=== PATIENT | female | born 1935 | race Two or more races ===

== ENCOUNTER 2019-11-18 16:18 | Inpatient (IN) | payer MEDICARE, OTHER ==
[~2019-11-18] VITALS: Ht 162.6 cm; Wt 80.4 kg
--- NOTE | 2019-11-18 16:40 | NUR ---
PATIENT WAS MSE BY DR BARNARD IN ROOM 03A. PATIENT A & O X3.
[2019-11-18] MEDS ORDERED: IV NORMAL SALINE 1000 ML BAG IV ONE ×2 (16:45→18:00)
[2019-11-18] MEDS ORDERED: LEVO25TA9 PO (16:48)
[2019-11-18] MEDS ORDERED: AMLO2.5T4 PO (16:48)
[2019-11-18] MEDS ORDERED: DIVA-78 PO (16:48)
[2019-11-18] MEDS ORDERED: CHOL10002 PO (16:48)
[2019-11-18] MEDS ORDERED: [UNRECOGNIZED DRUG - CODE] PO (16:48)
[2019-11-18] MEDS ORDERED: SIMV-49 PO (16:48)
[2019-11-18] MEDS ORDERED: PANT40TA4 PO (16:48)
[2019-11-18] MEDS ORDERED: FENO145T PO (16:48)
[2019-11-18] MEDS ORDERED: RISP1TAB27 PO (16:48)
[2019-11-18] MEDS ORDERED: FLUT12AE5 IH (16:48)
[2019-11-18] MEDS ORDERED: ACETAMINOPHEN ES 500 MG TABLET ONE (17:14)
[2019-11-18] MEDS ORDERED: ACETAMINOPHEN 325 MG TABLET PO ONE (17:15)
[2019-11-18 17:22] LABS: *BILIRUBIN,URIN NEGATIVE (NEGATIVE); *CLARITY,URINE CLEAR (CLEAR); *COLOR,URINE YELLOW (YELLOW); *KETONES,URINE NEGATIVE (NEGATIVE); LEUKOCYTE ESTERASE ,URINE 1+ (NEGATIVE); NITRITE, URINE NEGATIVE (NEGATIVE); PH,URINE 5.5 (5.0-8.0); UGLUCOSE NEGATIVE (NEGATIVE)
[2019-11-18 17:22] LABS: BASOPHILS # (AUTO) 0.1 K/uL (0.0-8.0); BASOPHILS % (AUTO) 1.6 % (0.0-2.0); EOSINOPHILS % (AUTO) 0.1 % (0.0-7.0); HEMATOCRIT 31.3 % (31.2-41.9); HEMOGLOBIN 10.3 g/dL (10.9-14.3); LYMPHOCYTES # (AUTO) 1.1 K/uL (20.0-40.0); LYMPHOCYTES % (AUTO) 24.9 % (20.5-51.5); MEAN CORPUSCULAR HEMOGLOBIN 31.4 uug (24.7-32.8); MEAN CORPUSCULAR HGB CONC 33 g/dL (32.3-35.6); MEAN CORPUSCULAR VOLUME 95.9 fL (75.5-95.3); MONOCYTES # (AUTO) 0.8 K/uL (2.0-10.0); MONOCYTES % (AUTO) 18.5 % (0.0-11.0); NEUTROPHILS # (AUTO) 2.3 K/uL (1.8-8.9); NEUTROPHILS % (AUTO) 54.9 % (38.5-71.5); PLATELET COUNT (AUTO) 281 K/uL (179-408); RED BLOOD CELL COUNT(AUTO) 3.26 MIL/uL (3.63-4.92); WHITE BLOOD COUNT (AUTO) 4.3 K/uL (3.8-11.8)
[2019-11-18 17:38] LABS: BILIRUBIN,DIRECT 0.3 mg/dL (0.0-0.2); BILIRUBIN,TOTAL 1.2 mg/dL (0.2-1.0); POTASSIUM 4.7 mmol/L (3.5-5.1); TOTAL PROTEIN, SERUM 7.4 g/dL (6.4-8.2)
[2019-11-18 17:50] LABS: *BLOOD, URINE TRACE (NEGATIVE)
[2019-11-18 17:51] LABS: MUCUS,URINE FEW /LPF (0-FEW); RBC,URINE 0-3 /HPF (0-3); SQUAMOUS EPITHELIAL CELL,UR FEW /HPF (NONE SEEN)
[2019-11-18 17:59] LABS: BAND % (MANUAL) 5 % (0-10); LYMPHOCYTES % (MANUAL) 20 % (20-40); MONOCYTES % (MANUAL) 16 % (2-10); NEUTROPHILS % (MANUAL) 59 % (42-75)
[2019-11-18] MEDS ORDERED: VANCOMYCIN IV 1,000 MG in IV DEXTROSE 5% 250 ML IV ONE (18:00)
[2019-11-18] MEDS ORDERED: PIPERACILLIN SODIUM/TAZOBACTAM 3.375 G in IV DEXTROSE 5% 50 ML IV ONE (18:00)
[2019-11-18] MEDS ORDERED: PIPERACILLIN/TAZOBACTAM/D5W 50 ML IV ONE (18:01)
[2019-11-18 18:06] LABS: THYROID STIMULATING HORMONE 2.669 mIU/mL (0.358-3.740)
--- NOTE | 2019-11-18 18:07 | NUR ---
[facility] WAS CALLED DR PINON [employer]GUN [employer] ASSEMBLY MACHINE ADJUSTER WAITING FOR CALL BACK.
[2019-11-18] MEDS ORDERED: VANCOMYCIN IV 200 ML ONE (18:32)
--- NOTE | 2019-11-18 18:54 | NUR ---
PATIENT EATING DINNER. NO C/O ANY PAIN. NO SOB. IV ATB INFUSING WELL NO ADVERSE REACTION NOTED WILL CONTINUE TO MONITOR.
--- NOTE | 2019-11-18 19:55 | NUR ---
Pt. admitted to Tele Room 206, under care of Dr. Amezquita Belongs List completed. All belongings with patient A/Ox4. Able to make needs known. Able to speak in complete sentences No signs of distress
[2019-11-18 20:00] VITALS: BP 117/48
--- NOTE | 2019-11-18 20:00 | NUR ---
RECEIVED PT FROM ER VIA [facility]. UNDER THE CARE OF DR. PINON. DX: SEPSIS/UTI PT IN NO ACUTE DISTRESS. ADMISSION PROCESS AND CARE PLAN INITIATED. PRISON ASSESSMENT DONE. SAFETY AND COMFORT PROVIDED. WILL CONTINUE TO MONITOR.
[2019-11-18] MEDS ORDERED: DOSING BY PHARMACY-MD TO SPECIFY MED/ROUTE XX PRN (20:30)
--- NOTE | 2019-11-18 20:50 | NUR ---
PHARMACY CALLED REGARDING ZOSYN REACTION. PT DON'T HAVE ANY ADVERSE REACTION PER PT AND THROUGH ASSESSMENT. PHARMACY WANTS TO CLARIFY IF DR WANTS TO CONTINUE ZOSYN. NEED TO CALL DR. PT IN NO ACUTE DISTRESS. WILL CONTINUE TO MONITOR.
[2019-11-18] MEDS ORDERED: SIMVASTATIN 40 MG TABLET PO SCH (21:00)
--- NOTE | 2019-11-18 21:10 | NUR ---
PHARMACY CLINICAL NOTES: S: 83 YO PT WITH DX OF UTI/SEPSIS. ORDERED VANCO O: BUN/SCR 10/1.0, WBC 4.3, TEMP 102, DOSING WT 177 LBS A/P: PT received Vancomycin 1 gm in ER @ 1843. Will continue with Vancomycin 1 gm ivpb q20h, next dose @ 0300am on 11/19/19 Estimated peak 33.3 trough 16.9 . Plan to order trough prior to 4th dose of Vancomycin will continue to monitor the renal fxn and levels and adjust the dose as necessary.
--- NOTE | 2019-11-18 21:20 | NUR ---
CALLED DR. PINON REGARDING PT ALLERGIC TO ZOSYN. AWARE AND CHANGED ZOSYN MEDICATION TO CEFEPIME 1 GM DAILY.
[2019-11-18] MEDS: SIMVASTATIN 20 MG TABLET PO SCH (21:32)
[2019-11-19] VITALS: BP 143/57
[2019-11-19] MEDS ORDERED: CEFEPIME HCL 1 G VIAL ONE (00:28)
[2019-11-19] MEDS: VANCOMYCIN IV 1,000 MG in IV DEXTROSE 5% 250 ML IV SCH (02:27)
[2019-11-19 04:00] VITALS: BP 125/78
[2019-11-19] MEDS ORDERED: CEFEPIME HCL 1 G in IV DEXTROSE 5% 50 ML IV SCH (06:00)
--- NOTE | 2019-11-19 06:53 | NUR ---
PT SLEPT INTERMITTENTLY. PT IN NO ACUTE DISTRESS. PT AFEBRILE. HAD EPISODES OF COUGH.PRESCRIBED MEDICATION GIVEN AND PT TOLERATED IT WELL. SAFETY AND COMFORT PROVIDED. ALL NEEDS ARE MET. WILL ENDORSE TO INCOMING NURSE FOR CONTINUITY OF CARE.
[2019-11-19 07:09] LABS: BASOPHILS # (AUTO) 0.1 K/uL (0.0-8.0); BASOPHILS % (AUTO) 1.5 % (0.0-2.0); EOSINOPHILS % (AUTO) 0.1 % (0.0-7.0); HEMATOCRIT 31.9 % (31.2-41.9); HEMOGLOBIN 10.6 g/dL (10.9-14.3); LYMPHOCYTES # (AUTO) 1.2 K/uL (20.0-40.0); LYMPHOCYTES % (AUTO) 23.6 % (20.5-51.5); MEAN CORPUSCULAR HEMOGLOBIN 31.5 uug (24.7-32.8); MEAN CORPUSCULAR HGB CONC 33 g/dL (32.3-35.6); MEAN CORPUSCULAR VOLUME 94.6 fL (75.5-95.3); MONOCYTES # (AUTO) 0.6 K/uL (2.0-10.0); MONOCYTES % (AUTO) 11.3 % (0.0-11.0); NEUTROPHILS # (AUTO) 3.3 K/uL (1.8-8.9); NEUTROPHILS % (AUTO) 63.5 % (38.5-71.5); PLATELET COUNT (AUTO) 289 K/uL (179-408); RED BLOOD CELL COUNT(AUTO) 3.38 MIL/uL (3.63-4.92); WHITE BLOOD COUNT (AUTO) 5.1 K/uL (3.8-11.8)
[2019-11-19 07:22] LABS: CREATININE 1.1 mg/dL (0.6-1.3); MAGNESIUM 1.6 mg/dL (1.8-2.4); POTASSIUM 4.1 mmol/L (3.5-5.1)
[2019-11-19] MEDS: DIVALPROEX 125 MG TABLET.DR PO SCH (08:42)
[2019-11-19] MEDS: DOCUSATE SODIUM 250 MG CAPSULE PO SCH (08:42)
[2019-11-19] MEDS: risperiDONE 1 MG TABLET PO SCH (08:43)
[2019-11-19] MEDS: LEVOTHYROXINE SODIUM 25 MCG TABLET PO SCH (08:43)
[2019-11-19] MEDS: AMLODIPINE 2.5 MG TABLET PO SCH (08:43)
[2019-11-19] MEDS: PANTOPRAZOLE SODIUM 40 MG TABLET.DR PO SCH (08:43)
[2019-11-19] MEDS: CHOLECALCIFEROL 1,000 UNIT TABLET PO SCH (08:44)
[2019-11-19] MEDS: FENOFIBRATE NANOCRYSTALLIZED 145 MG TABLET PO SCH (08:44)
[2019-11-19] MEDS ORDERED: DIVALPROEX 500 MG TABLET.DR PO SCH (09:00)
[2019-11-19] MEDS ORDERED: DOCUSATE CALCIUM 240 MG PO SCH (09:00)
[2019-11-19] MEDS ORDERED: MAGNESIUM SULFATE/D5W 100 ML IV SCH (11:00)
[2019-11-19] MEDS: SODIUM PHOSPHATE MM 15 MMOL in IV NORMAL SALINE 250 ML IV ONE (11:35)
[2019-11-19 13:00] VITALS: BP 118/48
--- NOTE | 2019-11-19 13:15 | NUR ---
PHARMACY CLINICAL NOTES:VANCOMYCIN DOSING PER PHARMACY S: 83 YO PT WITH DX OF UTI/SEPSIS. CONTINUE VANCOMYCIN O: BUN/SCR 8/1.1, WBC 5.1, TEMP 98.9, DOSING WT 177 LBS A/P: Will continue with Vancomycin 1 gm ivpb q20h, next dose @ 2300 tonight(2nd dose). Estimated peak 33.3 trough 16.9 . Plan to order trough prior to 4th dose of Vancomycin(not ordered yet). Will continue to monitor the renal fxn and levels and adjust the dose as necessary.
--- NOTE | 2019-11-19 14:37 | NUR ---
IV INFILTRATED R WRIST. CATHETER REMOVED INTACT NO UNABLE TO RESTART NEW ONE AT THIS TIME. PT DOES NOT WANT TO TRY ANYMORE AT THIS TIME.
[2019-11-19 16:00] VITALS: BP 122/50
--- NOTE | 2019-11-19 17:14 | NUR ---
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 AND HAS PLANS FOR STENT PLACEMENT IN THE NEXT MONTH OR SO WAITING FOR MD AND INSURANCE APPROVAL
--- NOTE | 2019-11-19 19:30 | NUR ---
Patient in bed, awake. Patient denies any SOB or acute distress. Patient denies any pain. Patient has few episodes of cough, otherwise vitals are stable. IV was infiltrated since 143. Called quality control supervisor to request for IV reinsertion, however patient will be needing a midline and RN who will reinsert IV will come here at 0045. Will give prescribed IV antibiotics once IV is placed. Safety measures in place. Will continue with the plan of care.
[2019-11-19] MEDS: SIMVASTATIN 20 MG TABLET PO SCH (21:54)
[2019-11-19 22:00] VITALS: BP 144/52
--- NOTE | 2019-11-20 02:13 | NUR ---
Midline insertion was placed successfully. Will hang prescribed antibiotics accordingly.
[2019-11-20] MEDS: VANCOMYCIN IV 1,000 MG in IV DEXTROSE 5% 250 ML IV SCH ×2 (02:18→18:24)
[2019-11-20 04:00] VITALS: BP 140/66
[2019-11-20] MEDS: ACETAMINOPHEN 325 MG TABLET PO PRN ×3 (04:08→18:24)
--- NOTE | 2019-11-20 04:10 | NUR ---
Patient is febrile at 102. Gave prescribed tylenol 650mg. Will continue to monitor
[2019-11-20] MEDS: CEFEPIME HCL 1 G in IV DEXTROSE 5% 50 ML IV SCH (05:10)
--- NOTE | 2019-11-20 05:52 | NUR ---
Patient's current temperature is at 98.6.
[2019-11-20] MEDS: SODIUM PHOSPHATE MM 15 MMOL in IV NORMAL SALINE 250 ML IV ONE (06:02)
--- NOTE | 2019-11-20 06:02 | NUR ---
Hung the prescribed Sodium Phosphate that was supposed to be given yesterday, 11/18 at 11am by day shift RN. Currently running at 63cc/hour.
--- NOTE | 2019-11-20 06:54 | NUR ---
Patient slept intermittently throughout the night. Patient is awake at this time. Patient denies any acute distress. Patient denies pain. Patient is afebrile at this time. Vitals are stable. All prescribed medications were given. IV is intact. Needs and comfort care provided. Safety measures in place. Bed low and locked in position. Will endorse to the oncoming nurse accordingly.
[2019-11-20 07:00] LABS: EOSINOPHILS % (AUTO) 0.1 % (0.0-7.0)
[2019-11-20 07:05] LABS: BILIRUBIN,TOTAL 0.9 mg/dL (0.2-1.0); MAGNESIUM 1.6 mg/dL (1.8-2.4); PHOSPHOROUS 2.1 mg/dL (2.5-4.9); POTASSIUM 3.6 mmol/L (3.5-5.1); TOTAL PROTEIN, SERUM 6.3 g/dL (6.4-8.2)
[2019-11-20 07:13] LABS: BASOPHILS # (AUTO) 0.1 K/uL (0.0-8.0); LYMPHOCYTES # (AUTO) 1.4 K/uL (20.0-40.0); LYMPHOCYTES % (AUTO) 24.8 % (20.5-51.5); MEAN CORPUSCULAR HEMOGLOBIN 31.9 uug (24.7-32.8); MEAN CORPUSCULAR HGB CONC 34 g/dL (32.3-35.6); MEAN CORPUSCULAR VOLUME 93.6 fL (75.5-95.3); MONOCYTES # (AUTO) 0.9 K/uL (2.0-10.0); MONOCYTES % (AUTO) 15.4 % (0.0-11.0); NEUTROPHILS # (AUTO) 3.3 K/uL (1.8-8.9); NEUTROPHILS % (AUTO) 58.7 % (38.5-71.5); PLATELET COUNT (AUTO) 249 K/uL (179-408); RED BLOOD CELL COUNT(AUTO) 2.77 MIL/uL (3.63-4.92); WHITE BLOOD COUNT (AUTO) 5.6 K/uL (3.8-11.8)
[2019-11-20 07:14] LABS: HEMOGLOBIN 8.8 g/dL (10.9-14.3)
[2019-11-20] MEDS: DOCUSATE SODIUM 250 MG CAPSULE PO SCH (08:46)
[2019-11-20] MEDS: AMLODIPINE 2.5 MG TABLET PO SCH (08:47)
[2019-11-20] MEDS: DIVALPROEX 125 MG TABLET.DR PO SCH (08:47)
[2019-11-20] MEDS: PANTOPRAZOLE SODIUM 40 MG TABLET.DR PO SCH (08:49)
[2019-11-20] MEDS: risperiDONE 1 MG TABLET PO SCH (08:49)
[2019-11-20] MEDS: FENOFIBRATE NANOCRYSTALLIZED 145 MG TABLET PO SCH (08:50)
[2019-11-20] MEDS: LEVOTHYROXINE SODIUM 25 MCG TABLET PO SCH (08:50)
[2019-11-20] MEDS: CHOLECALCIFEROL 1,000 UNIT TABLET PO SCH (08:50)
--- NOTE | 2019-11-20 09:18 | NUR ---
PHARMACY CLINICAL NOTES:VANCOMYCIN DOSING PER PHARMACY S: To continue vanco dosing for this 83 YO PT WITH DX OF UTI/SEPSIS O: BUN/SCR 8/1.0, WBC 5.6, TEMP 100.2 ht 162 cm wt 80 kg A/P: Will continue same dose of Vancomycin 1 gm ivpb q20h for today. 3rd dose due today at 1900. Plan to order trough prior to 4th dose of Vancomycin(not ordered yet). Will continue to monitor the renal fxn and levels and adjust the dose as necessary. Will follow up
[2019-11-20 10:17] LABS: BAND % (MANUAL) 5 % (0-10); LYMPHOCYTES % (MANUAL) 25 % (20-40); MONOCYTES % (MANUAL) 18 % (2-10); NEUTROPHILS % (MANUAL) 52 % (42-75)
[2019-11-20 12:00] VITALS: BP 133/52
[2019-11-20] MEDS: MAGNESIUM SULFATE/D5W 100 ML IV SCH ×2 (12:10→13:09)
--- NOTE | 2019-11-20 12:34 | NUR ---
patient desaturated at room air, to 88%, 2 liter o2 provided, saturating at 95%, patient is wheezing, however alert, oriented x4, constantly coughing, paged dr morocho, lab reported patient is positive for covid. continue to monitor closelyy
--- NOTE | 2019-11-20 13:55 | NUR ---
spoke to dr morocho about patient current condition, with order for pulmonary consult and ID, order placed.
--- NOTE | 2019-11-20 15:32 | NUR ---
spoke to JOSEF and made aware about ID consult, spoke to dr benjamin chief science officer as well for consult
[2019-11-20 15:40] VITALS: BP 128/56
[2019-11-20] MEDS ORDERED: NEUTRA PHOS PACKET PO ONE (16:00)
[2019-11-20] MEDS ORDERED: ALBUTEROL SULFATE 8 GM HFA.AER.AD IH PRN (17:00)
[2019-11-20] MEDS ORDERED: IPRATROPIUM BROMIDE 12.9 GM INHALER INH PRN (17:00)
[2019-11-20] MEDS ORDERED: ALBUTEROL SULFATE 2.5 MG/3 ML NEBU NEB PRN (17:00)
[2019-11-20 18:00] VITALS: BP 150/65
[2019-11-20] MEDS ORDERED: IPRATROPIUM/ALBUTEROL SULFATE 14.7 GM INHALER IH PRN ×2 (18:00→18:19)
[2019-11-20] MEDS: SIMVASTATIN 20 MG TABLET PO SCH (20:48)
[2019-11-20] MEDS ORDERED: INVESTIGATIONAL IV MED 1 EA in IV NORMAL SALINE 210 ML IV ONE (21:00)
[2019-11-20 21:16] VITALS: BP 127/62
--- NOTE | 2019-11-20 22:30 | NUR ---
PATIENT IN BED, ASLEEP BUT EASILY AROUSABLE. ABLE TO MAKE NEEDS KNOWN AND FOLLOW SIMPLE COMMANDS. NO COMPLAINTS OF PAIN. RECEIVED ALL DUE MEDICATIONS. TOLERATED WELL. WITH ONGOING O2 AT 2L/MIN VIA NC. RESPIRATIONS EVEN AND UNLABORED. NO EPISODES OF COUGHING AT THIS TIME. PATIENT WITH MIDLINE AT RIGHT UPPER ARM, NO S/S COMPLICATIONS OBSERVED. FALL AND SAFETY PRECAUTIONS OBSERVED. WILL CONTINUE TO ANTICIPATE AND ATTEND TO PATIENT'S NEEDS.
[2019-11-21] VITALS (8 sets, daily range): BP systolic 109–143; BP diastolic 45–69
[2019-11-21] MEDS: ACETAMINOPHEN 325 MG TABLET PO PRN ×3 (04:42→17:54)
[2019-11-21] MEDS: CEFEPIME HCL 1 G in IV DEXTROSE 5% 50 ML IV SCH (05:47)
[2019-11-21 06:33] LABS: BASOPHILS # (AUTO) 0.1 K/uL (0.0-8.0); BASOPHILS % (AUTO) 1.2 % (0.0-2.0); HEMATOCRIT 26.3 % (31.2-41.9); HEMOGLOBIN 8.8 g/dL (10.9-14.3); LYMPHOCYTES # (AUTO) 0.8 K/uL (20.0-40.0); LYMPHOCYTES % (AUTO) 11.9 % (20.5-51.5); MEAN CORPUSCULAR HGB CONC 34 g/dL (32.3-35.6); MEAN CORPUSCULAR VOLUME 92.4 fL (75.5-95.3); MONOCYTES # (AUTO) 0.9 K/uL (2.0-10.0); MONOCYTES % (AUTO) 12.3 % (0.0-11.0); NEUTROPHILS # (AUTO) 5.2 K/uL (1.8-8.9); NEUTROPHILS % (AUTO) 74.6 % (38.5-71.5); PLATELET COUNT (AUTO) 265 K/uL (179-408); RED BLOOD CELL COUNT(AUTO) 2.84 MIL/uL (3.63-4.92); WHITE BLOOD COUNT (AUTO) 6.9 K/uL (3.8-11.8)
--- NOTE | 2019-11-21 07:07 | NUR ---
PATIENT IS ALERT AND VERBALLY RESPONSIVE. PATIENT HAD ELEVATED TEMPERATURE EARLIER IN THE MORNING AT 04:47 TEMP: 101.2. OFFERED COOLING MEASURES BUT PATIENT REFUSED. ADMINISTERED TYLENOL 650MG PER MD ORDER. RECHECKED TEMPERATURE 98.5 AT 06:22.
[2019-11-21 07:18] LABS: MAGNESIUM 1.9 mg/dL (1.8-2.4); POTASSIUM 4.1 mmol/L (3.5-5.1)
--- NOTE | 2019-11-21 07:45 | NUR ---
Patient in bed, awake and verbally responsive. On Oxygen at 2L via nasal canula, saturating 96%. No complain of Pain or discomfort. On contact and droplet Isolation for positive covid 19. All needs attended and met. Kept clean and comfortable. Will continue to monitor.
[2019-11-21] MEDS: DOCUSATE SODIUM 250 MG CAPSULE PO SCH (09:07)
[2019-11-21] MEDS: DIVALPROEX 125 MG TABLET.DR PO SCH (09:07)
[2019-11-21] MEDS: FENOFIBRATE NANOCRYSTALLIZED 145 MG TABLET PO SCH (09:08)
[2019-11-21] MEDS: risperiDONE 1 MG TABLET PO SCH (09:08)
[2019-11-21] MEDS: PANTOPRAZOLE SODIUM 40 MG TABLET.DR PO SCH (09:08)
[2019-11-21] MEDS: CHOLECALCIFEROL 1,000 UNIT TABLET PO SCH (09:08)
[2019-11-21] MEDS: LEVOTHYROXINE SODIUM 25 MCG TABLET PO SCH (09:08)
[2019-11-21] MEDS: AMLODIPINE 2.5 MG TABLET PO SCH (09:08)
[2019-11-21 09:24] LABS: ABG BASE EXCESS -0.9 mmol/L; ABG PCO2 30.6 mmHg (35.0-45.0); ABG PH 7.475 (7.350-7.450); ABG PO2 67.5 mmHg (75.0-100.0); ABG SITE RIGHT RADIAL; ABG TOTAL HEMOGLOBIN 10.5 G/dL (12.0-16.0); MetHb 0.3 % (0.0-1.5); O2Hb 93.3 % (94.0-97.0); VENT MODE Nasal Cannula
--- NOTE | 2019-11-21 12:00 | NUR ---
received a call from Pharmacy ([facility]) that patient has a recommendation from MD regarding Remdesevir IV, spoke with Patient and explained regarding remdesevir IV, and ask her if shes willing to get that medication, patient is alert and Oriented x 4 and verbalized that she wants to get it. called Pharmacy and made aware.
[2019-11-21 14:07] LABS: ALANINE AMINOTRANSFERASE 42 U/L (14-59); ASPARTATE AMINOTRANSFERASE 64 U/L (15-37)
[2019-11-21] MEDS ORDERED: INVESTIGATIONAL IV MED 1 EA in IV NORMAL SALINE 210 ML IV ONE (15:00)
[2019-11-21] MEDS ORDERED: POLYVINYL ALCOHOL OPHT DROPS 15 ML BOTTLE EACHEYE PRN (15:45)
--- NOTE | 2019-11-21 15:56 | NUR ---
PHARMACY CLINICAL NOTES:VANCOMYCIN DOSING PER PHARMACY S: To continue vanco dosing for this 83 YO PT WITH DX OF UTI/SEPSIS(COVID +) O: BUN/SCR 8/0.9 WBC 6.9 , TEMP 103.1 ht 162 cm wt 80 kg Vancomycin trough 30 at 1430: 5.7 A/P: Even though trough is unexpectedly low, will not repeat trough for next dose tomorrow morning, due to spiking fever and clinical deterioration. Instead will give Vancomycin 1250mg IV x1 today around 1630 and draw random tomorrow morning at 0600. (Calculated new dose could be 1250mg IV q13hrs based on current trough, yielding peak 33.7 and trough 15.1). Rx will review random and renal function in am and if stable, will continue as 1250mg IV q13hrs. Will continue to monitor.
[2019-11-21] MEDS ORDERED: VANCOMYCIN IV 1,250 MG in IV DEXTROSE 5% 250 ML IV ONE (16:30)
[2019-11-21] MEDS ORDERED: NEUTRA PHOS PACKET PO ONE (16:30)
--- NOTE | 2019-11-21 16:40 | NUR ---
Patient completed Remdesevir IV, NO ASE noted. (1515)BP Pre Infusion 127/57 HR 89 , (1538) 15 minutes after start of Infusion BP 130/58 HR 86, (1630) post Infusion BP 135/56 HR 78. Patient tolerated the IV Remdesevir, No Naisea/Vomiting, Diaphoresis, Shivering. Will continue to monitor.
--- NOTE | 2019-11-21 18:16 | NUR ---
Patient in bed, awake, alert and verbally responsive. On Oxygen at 2L via Nasal canula, saturating 96%. No complain of Pain/discomfort. Remdesevir IV x 1 given, No ASE noted. Patient noted with Fever, recent temp is 101.0, Tylenol 650mg tablet given as ordered. refused cooling Measures. Kept clean and comfortable. Will endorse to Oncoming Nurse.
[2019-11-21] MEDS: SIMVASTATIN 20 MG TABLET PO SCH (20:53)
[2019-11-21] MEDS ORDERED: INVESTIGATIONAL IV MED 1 EA in IV NORMAL SALINE 230 ML IV SCH (21:00)
[2019-11-22] MEDS: ACETAMINOPHEN 325 MG TABLET PO PRN ×3 (00:50→21:17)
[2019-11-22 01:00] VITALS: BP 146/61
[2019-11-22 04:40] VITALS: BP 126/59
--- NOTE | 2019-11-22 05:08 | NUR ---
pt had a low grade fever of 100.9, tylenol 650 mg given, pt allowed to rest, temperature reassessment to be done this AM
[2019-11-22] MEDS: CEFEPIME HCL 1 G in IV DEXTROSE 5% 50 ML IV SCH (06:02)
[2019-11-22 08:00] VITALS: BP 135/44
--- NOTE | 2019-11-22 08:29 | NUR ---
Patient temperature noted at 100.0, 2 liters of Oxygen nasal cannula noted ,PRN tylenol given at this time, took all AM medications, no complaints of pain, no signs of distress noted, call light in reach, bed locked and in lowest position, all needs met at this time
[2019-11-22] MEDS: LEVOTHYROXINE SODIUM 25 MCG TABLET PO SCH (08:45)
[2019-11-22] MEDS: FENOFIBRATE NANOCRYSTALLIZED 145 MG TABLET PO SCH (08:45)
[2019-11-22] MEDS: AMLODIPINE 2.5 MG TABLET PO SCH (08:47)
[2019-11-22] MEDS: DIVALPROEX 125 MG TABLET.DR PO SCH (08:47)
[2019-11-22] MEDS: CHOLECALCIFEROL 1,000 UNIT TABLET PO SCH (08:47)
[2019-11-22] MEDS: DOCUSATE SODIUM 250 MG CAPSULE PO SCH (08:47)
[2019-11-22] MEDS: risperiDONE 1 MG TABLET PO SCH (08:47)
[2019-11-22] MEDS: PANTOPRAZOLE SODIUM 40 MG TABLET.DR PO SCH (08:47)
[2019-11-22 10:33] LABS: BASOPHILS # (AUTO) 0.1 K/uL (0.0-8.0); EOSINOPHILS % (AUTO) 0.1 % (0.0-7.0); HEMATOCRIT 28.2 % (31.2-41.9); HEMOGLOBIN 9.5 g/dL (10.9-14.3); LYMPHOCYTES # (AUTO) 1.6 K/uL (20.0-40.0); LYMPHOCYTES % (AUTO) 17.1 % (20.5-51.5); MEAN CORPUSCULAR HEMOGLOBIN 32.4 uug (24.7-32.8); MEAN CORPUSCULAR HGB CONC 34 g/dL (32.3-35.6); MEAN CORPUSCULAR VOLUME 96.6 fL (75.5-95.3); MONOCYTES # (AUTO) 1.1 K/uL (2.0-10.0); MONOCYTES % (AUTO) 12.2 % (0.0-11.0); NEUTROPHILS # (AUTO) 6.3 K/uL (1.8-8.9); NEUTROPHILS % (AUTO) 69.6 % (38.5-71.5); PLATELET COUNT (AUTO) 320 K/uL (179-408); RED BLOOD CELL COUNT(AUTO) 2.92 MIL/uL (3.63-4.92); WHITE BLOOD COUNT (AUTO) 9.1 K/uL (3.8-11.8)
[2019-11-22 10:52] LABS: BILIRUBIN,DIRECT 0.4 mg/dL (0.0-0.2); POTASSIUM 3.8 mmol/L (3.5-5.1); TOTAL PROTEIN, SERUM 6.8 g/dL (6.4-8.2)
[2019-11-22 15:05] VITALS: BP 113/52
[2019-11-22] MEDS: INVESTIGATIONAL IV MED 1 EA in IV NORMAL SALINE 230 ML IV SCH (15:05)
--- NOTE | 2019-11-22 18:27 | NUR ---
Patient Remdesivir this shift Pre B/P: 113/62 B/P Durin/44 Post B/P: 113/47
--- NOTE | 2019-11-22 19:30 | NUR ---
RECEIVED PT AWAKE. ALERT AND ORIENTED X4. PT IN NO ACUTE DISTRESS. IV INTACT. SAFETY AND COMFORT PROVIDED. WILL CONTINUE TO MONITOR.
[2019-11-22 20:00] VITALS: BP 118/60
[2019-11-22] MEDS: SIMVASTATIN 20 MG TABLET PO SCH (21:16)
[2019-11-22] MEDS: ENOXAPARIN SODIUM 40 MG/0.4 ML DISP.SYRIN SQ SCH (21:17)
[2019-11-23] VITALS: BP 112/58
[2019-11-23 04:30] VITALS: BP 127/52
[2019-11-23] MEDS: ACETAMINOPHEN 325 MG TABLET PO PRN (05:06)
[2019-11-23] MEDS: CEFEPIME HCL 1 G in IV DEXTROSE 5% 50 ML IV SCH (05:23)
--- NOTE | 2019-11-23 06:27 | NUR ---
PT SLEPT INTERMITTENTLY. PT IN NO ACUTE DISTRESS. PRESCRIBED MEDICATION GIVEN AND PT TOLERATED IT WELL. SAFETY AND COMFORT PROVIDED. ALL NEEDS ARE MET.WILL ENDORSE TO INCOMING NURSE FOR CONTINUITY OF CARE.
[2019-11-23 07:19] LABS: BASOPHILS # (AUTO) 0.1 K/uL (0.0-8.0); BASOPHILS % (AUTO) 1.6 % (0.0-2.0); EOSINOPHILS % (AUTO) 0.3 % (0.0-7.0); LYMPHOCYTES # (AUTO) 1.8 K/uL (20.0-40.0); LYMPHOCYTES % (AUTO) 20.1 % (20.5-51.5); MEAN CORPUSCULAR HEMOGLOBIN 33.1 uug (24.7-32.8); MEAN CORPUSCULAR HGB CONC 34 g/dL (32.3-35.6); MEAN CORPUSCULAR VOLUME 97.4 fL (75.5-95.3); MONOCYTES # (AUTO) 1.5 K/uL (2.0-10.0); MONOCYTES % (AUTO) 16.3 % (0.0-11.0); NEUTROPHILS # (AUTO) 5.6 K/uL (1.8-8.9); NEUTROPHILS % (AUTO) 61.7 % (38.5-71.5); PLATELET COUNT (AUTO) 313 K/uL (179-408); WHITE BLOOD COUNT (AUTO) 9.1 K/uL (3.8-11.8)
[2019-11-23 07:21] LABS: BILIRUBIN,DIRECT 0.4 mg/dL (0.0-0.2); BILIRUBIN,TOTAL 0.8 mg/dL (0.2-1.0); CREATININE 0.8 mg/dL (0.6-1.3); POTASSIUM 3.6 mmol/L (3.5-5.1); TOTAL PROTEIN, SERUM 5.7 g/dL (6.4-8.2)
[2019-11-23 07:31] LABS: HEMOGLOBIN 8.2 g/dL (10.9-14.3); RED BLOOD CELL COUNT(AUTO) 2.48 MIL/uL (3.63-4.92)
[2019-11-23 07:32] LABS: HEMATOCRIT 24.1 % (31.2-41.9)
[2019-11-23 08:00] VITALS: BP 129/45
[2019-11-23] MEDS: risperiDONE 1 MG TABLET PO SCH (08:52)
[2019-11-23] MEDS: DIVALPROEX 125 MG TABLET.DR PO SCH (08:53)
[2019-11-23] MEDS: DOCUSATE SODIUM 250 MG CAPSULE PO SCH (08:53)
[2019-11-23] MEDS: FENOFIBRATE NANOCRYSTALLIZED 145 MG TABLET PO SCH (08:53)
[2019-11-23] MEDS: LEVOTHYROXINE SODIUM 25 MCG TABLET PO SCH (08:53)
[2019-11-23] MEDS: CHOLECALCIFEROL 1,000 UNIT TABLET PO SCH (08:53)
[2019-11-23] MEDS: PANTOPRAZOLE SODIUM 40 MG TABLET.DR PO SCH (08:53)
[2019-11-23] MEDS: AMLODIPINE 2.5 MG TABLET PO SCH (09:09)
--- NOTE | 2019-11-23 09:15 | NUR ---
Patient remains alert, oriented x 3, not in any form of distress on 2 LPM via nasal cannula. She denies any pain or discomfort at this time. Due medications administered and tolerated well. Assisted with her needs promptly. Call light and frequently used items placed within patient's reach. Safety measures maintained.
[2019-11-23 09:45] LABS: LYMPHOCYTES % (MANUAL) 21 % (20-40); METAMYELOCYTES % 1 % (0-1); MONOCYTES % (MANUAL) 19 % (2-10); MYELOCYTES % 2 % (0-0); NEUTROPHILS % (MANUAL) 56 % (42-75)
[2019-11-23 09:51] LABS: REACTIVE LYMPHOCYTES 1 % (0-0)
[2019-11-23 12:00] VITALS: BP 146/60
[2019-11-23] MEDS: INVESTIGATIONAL IV MED 1 EA in IV NORMAL SALINE 230 ML IV SCH (14:46)
[2019-11-23 16:00] VITALS: BP 130/53
--- NOTE | 2019-11-23 19:00 | NUR ---
PATIENT ALERT ORIENTED, NO SOB NO CHEST PAIN, PATIENT HAS NO COMPLAIN OF PAIN. PATIENT CONTINENT OF BOWEL AND BLADDER, ASSISTED WITH TOILETING, CALL LIGHT WITHIN REACH, PATIENT REMAIN ON DROPLET PRECAUTIONS, CONT TO MONITOR.
[2019-11-23 21:00] VITALS: BP 129/53
[2019-11-23] MEDS: SIMVASTATIN 20 MG TABLET PO SCH (22:01)
[2019-11-23] MEDS: ENOXAPARIN SODIUM 40 MG/0.4 ML DISP.SYRIN SQ SCH (22:19)
[2019-11-24 05:23] LABS: BASOPHILS # (AUTO) 0.1 K/uL (0.0-8.0); EOSINOPHILS % (AUTO) 0.3 % (0.0-7.0); HEMATOCRIT 23.4 % (31.2-41.9); HEMOGLOBIN 7.9 g/dL (10.9-14.3); LYMPHOCYTES # (AUTO) 2.3 K/uL (20.0-40.0); MEAN CORPUSCULAR HEMOGLOBIN 32.5 uug (24.7-32.8); MEAN CORPUSCULAR HGB CONC 34 g/dL (32.3-35.6); MEAN CORPUSCULAR VOLUME 95.7 fL (75.5-95.3); NEUTROPHILS # (AUTO) 5.3 K/uL (1.8-8.9); PLATELET COUNT (AUTO) 310 K/uL (179-408); WHITE BLOOD COUNT (AUTO) 7.7 K/uL (3.8-11.8)
[2019-11-24] MEDS: CEFEPIME HCL 1 G in IV DEXTROSE 5% 50 ML IV SCH (05:27)
[2019-11-24 05:32] LABS: RED BLOOD CELL COUNT(AUTO) 2.44 MIL/uL (3.63-4.92)
[2019-11-24 05:43] LABS: BILIRUBIN,DIRECT 0.3 mg/dL (0.0-0.2); BILIRUBIN,TOTAL 0.6 mg/dL (0.2-1.0); CREATININE 0.9 mg/dL (0.6-1.3); POTASSIUM 3.6 mmol/L (3.5-5.1); TOTAL PROTEIN, SERUM 5.6 g/dL (6.4-8.2)
[2019-11-24 06:17] VITALS: BP 122/43
[2019-11-24 06:22] LABS: MAGNESIUM 1.8 mg/dL (1.8-2.4); PHOSPHOROUS 2.7 mg/dL (2.5-4.9)
--- NOTE | 2019-11-24 06:28 | NUR ---
PATIENT SLEPT MOST OF THE NIGHT, NO SOB NO CHEST PAIN. PATIENT HAS NO COMPLAIN OF PAIN, WITH EPISODE OF MOIST COUGH BUT NO SPUTUM NOTED. PATIENT REMAIN ON DROPLET PRECAUTIONS, AFEBRILE, CONT TO MONITOR.
--- NOTE | 2019-11-24 08:30 | NUR ---
AWAKE ALERT AND AWARE PATIENT HAD GOTTEN OUT OF BED URINATED ON THE FLOOR STATED WAS UNABLE TO MAKE IT TO THE BATHROOM ASSISTED WITH ADL MADE COMFORTABLE CALL LIGHTS AND PERSONAL BELONGINGS ARE WITHIN EASY REACH AT THIS TIME RIGHT UPPER ARM MIDLINE REMAINS INTACT MADE COMFORTABLE WILL CONTINUE TO OBSERVE.
[2019-11-24 08:57] LABS: NEUTROPHILS % (AUTO) 46.7 % (38.5-71.5)
[2019-11-24 08:58] LABS: LYMPHOCYTES % (AUTO) 34.4 % (20.5-51.5)
[2019-11-24 08:59] LABS: BASOPHILS % (AUTO) 2.8 % (0.0-2.0); MONOCYTES % (AUTO) 15.8 % (0.0-11.0)
[2019-11-24] MEDS: PANTOPRAZOLE SODIUM 40 MG TABLET.DR PO SCH (09:10)
[2019-11-24] MEDS: CHOLECALCIFEROL 1,000 UNIT TABLET PO SCH (09:10)
[2019-11-24] MEDS: DIVALPROEX 125 MG TABLET.DR PO SCH (09:10)
[2019-11-24] MEDS: DOCUSATE SODIUM 250 MG CAPSULE PO SCH (09:10)
[2019-11-24] MEDS: risperiDONE 1 MG TABLET PO SCH (09:10)
[2019-11-24] MEDS: AMLODIPINE 2.5 MG TABLET PO SCH (09:11)
[2019-11-24] MEDS: FENOFIBRATE NANOCRYSTALLIZED 145 MG TABLET PO SCH (09:11)
[2019-11-24] MEDS: LEVOTHYROXINE SODIUM 25 MCG TABLET PO SCH (09:11)
[2019-11-24 09:48] LABS: BAND % (MANUAL) 1 % (0-10); LYMPHOCYTES % (MANUAL) 31 % (20-40); METAMYELOCYTES % 3 % (0-1); MONOCYTES % (MANUAL) 18 % (2-10); MYELOCYTES % 5 % (0-0); NEUTROPHILS % (MANUAL) 38 % (42-75)
--- NOTE | 2019-11-24 10:00 | NUR ---
DR NGUYEN HERE SEEN PATIENT SHE IS CURRENTLY ON ROOM AIR NO RESPIRATORY DISTRESS NO NEW ORDERS.
[2019-11-24 10:08] LABS: REACTIVE LYMPHOCYTES 4 % (0-0)
--- NOTE | 2019-11-24 11:41 | NUR ---
DR SCOTT HERE TO SEE PATIENT WITH NO NEW ORDERS AT THIS TIME RESTING COMFORTABLY WITH ISOLATION IN PROGRESS ORDERED.
[2019-11-24 12:00] VITALS: BP 144/52
[2019-11-24] MEDS: INVESTIGATIONAL IV MED 1 EA in IV NORMAL SALINE 230 ML IV SCH (14:57)
--- NOTE | 2019-11-24 15:10 | NUR ---
REMDESIVIR STARTED ORDERED BLOOD PRESSURE CHECKED AND RECORDED WILL CONTINUE TO OBSERVE PATIENT.
[2019-11-24 15:15] VITALS: BP 130/62
[2019-11-24 15:25] VITALS: BP 128/57
--- NOTE | 2019-11-24 15:25 | NUR ---
VITALS CHECKED AND RECORDED WITH NO ADVERSE OR ALLERGIC REACTIONS AT THIS TIME PATIENT STATED COMFORTABLE WILL CONTINUE TO OBSERVE.
[2019-11-24 16:15] VITALS: BP 126/61
--- NOTE | 2019-11-24 16:15 | NUR ---
REMDESIVIR INFUSED ORDERED FOLLOWED BY 50 ML OF NS PATIENT TOLERATED WELL WITH NO ADVERSE OR ALLERGIC REACTIONS AT THIS TIME.
--- NOTE | 2019-11-24 17:12 | NUR ---
PATIENT TRANSFERED TO ROOM 322 FOR CONTINUED CARE WITH ALL HER PERSONAL BELONGINGS IN SATISFACTORY CONDITION.
--- NOTE | 2019-11-24 18:04 | NUR ---
PATIENT IS RESTING DENIES PAIN OR DISCOMFORTS NO ADVERSE OR ALLERGIC REACTIONS AT THIS TIME REMAIN ON O2 AT 3L/M WITH SATS AT 93 PERCENT BUT NO SHORTNESS OF BREATH AT THIS TIME.
--- NOTE | 2019-11-24 19:30 | NUR ---
Received patient resting in bed, no signs of acute distress noted. No complaints of pain or SOB. Vitals WNL. Saturating at 95% with 3L NC. No fevers noted right upper midline intact and patent and left AC heplock intact and patent. patient able to ambulate to restroom. on contact/droplet precautions for +COVID. Safety measures initiated. bed is low and locked, call light within reach. Will continue to monitor.
[2019-11-24] MEDS: SIMVASTATIN 20 MG TABLET PO SCH (20:46)
[2019-11-24] MEDS: ENOXAPARIN SODIUM 40 MG/0.4 ML DISP.SYRIN SQ SCH (20:46)
[2019-11-24 21:48] VITALS: BP 144/52
[2019-11-25] VITALS (8 sets, daily range): BP systolic 119–142; BP diastolic 44–60
[2019-11-25] MEDS: CEFEPIME HCL 1 G in IV DEXTROSE 5% 50 ML IV SCH (05:25)
--- NOTE | 2019-11-25 06:38 | NUR ---
Patient slept well, no distress noted. No SOB, fevers noted. Vitals WNL Medications given as ordered. Will endorse to next shift.
[2019-11-25 07:13] LABS: BASOPHILS # (AUTO) 0.1 K/uL (0.0-8.0); BASOPHILS % (AUTO) 0.9 % (0.0-2.0); EOSINOPHILS % (AUTO) 0.3 % (0.0-7.0); HEMATOCRIT 24.2 % (31.2-41.9); HEMOGLOBIN 8.6 g/dL (10.9-14.3); LYMPHOCYTES # (AUTO) 2.3 K/uL (20.0-40.0); MEAN CORPUSCULAR HEMOGLOBIN 37.7 uug (24.7-32.8); MEAN CORPUSCULAR HGB CONC 35 g/dL (32.3-35.6); MEAN CORPUSCULAR VOLUME 106.3 fL (75.5-95.3); MONOCYTES # (AUTO) 0.8 K/uL (2.0-10.0); MONOCYTES % (AUTO) 10.3 % (0.0-11.0); NEUTROPHILS # (AUTO) 4.4 K/uL (1.8-8.9); NEUTROPHILS % (AUTO) 58.5 % (38.5-71.5); PLATELET COUNT (AUTO) 339 K/uL (179-408); WHITE BLOOD COUNT (AUTO) 7.6 K/uL (3.8-11.8)
[2019-11-25 07:14] LABS: RED BLOOD CELL COUNT(AUTO) 2.28 MIL/uL (3.63-4.92)
[2019-11-25 07:34] LABS: BILIRUBIN,DIRECT 0.2 mg/dL (0.0-0.2); BILIRUBIN,TOTAL 0.6 mg/dL (0.2-1.0); CREATININE 0.9 mg/dL (0.6-1.3); POTASSIUM 3.5 mmol/L (3.5-5.1); TOTAL PROTEIN, SERUM 6.2 g/dL (6.4-8.2)
[2019-11-25] MEDS: CHOLECALCIFEROL 1,000 UNIT TABLET PO SCH (09:27)
[2019-11-25] MEDS: FENOFIBRATE NANOCRYSTALLIZED 145 MG TABLET PO SCH (09:27)
[2019-11-25] MEDS: AMLODIPINE 2.5 MG TABLET PO SCH (09:27)
[2019-11-25] MEDS: DOCUSATE SODIUM 250 MG CAPSULE PO SCH (09:27)
[2019-11-25] MEDS: PANTOPRAZOLE SODIUM 40 MG TABLET.DR PO SCH (09:27)
[2019-11-25] MEDS: LEVOTHYROXINE SODIUM 25 MCG TABLET PO SCH (09:28)
[2019-11-25] MEDS: DIVALPROEX 125 MG TABLET.DR PO SCH (09:34)
[2019-11-25] MEDS: risperiDONE 1 MG TABLET PO SCH (09:34)
[2019-11-25] MEDS: INVESTIGATIONAL IV MED 1 EA in IV NORMAL SALINE 230 ML IV SCH (14:49)
--- NOTE | 2019-11-25 20:00 | NUR ---
PATIENT RECEIVED INTO CARE, LAYING IN BED SLEEPING AND RESTING COMFORTABLY. PATIENT HAS NO S/S OF ACUTE DISTRESS OR DISCOMFORT NOTED/OBSERVED BY THIS NURSE. ALL ALLERGY, SAFETY, AND ISOLATION PRECAUTIONS ARE IN PLACE. CALL LIGHT AND PERSONAL ITEMS ARE WITHIN REACH AT ALL TIMES. WILL CONTINUE TO MONITOR AND ASSESS.
[2019-11-25] MEDS: SIMVASTATIN 20 MG TABLET PO SCH (21:50)
[2019-11-25] MEDS: ENOXAPARIN SODIUM 40 MG/0.4 ML DISP.SYRIN SQ SCH (21:51)
[2019-11-26 04:15] VITALS: BP_DIAS 123
[2019-11-26] MEDS: CEFEPIME HCL 1 G in IV DEXTROSE 5% 50 ML IV SCH (05:09)
--- NOTE | 2019-11-26 06:00 | NUR ---
PATIENT SLEPT WELL THROUGHOUT NIGHT WITH NO COMPLAINTS OF PAIN OR DISCOMFORT VERBALIZED TO THIS NURSE AND NO S/S OF ACUTE DISTRESS/DISCOMFORT NOTED OR OBSERVED BY THIS NURSE. ALONSO MIDLINE IS PATENT AND INTACT. ALL SAFETY, FALL, ALLERGY, AND ISOLATION PRECAUTIONS REMAIN IN PLACE. CALL LIGHT AND PERSONAL ITEMS REMAIN WITHIN REACH AT ALL TIMES.
[2019-11-26 07:07] LABS: BASOPHILS # (AUTO) 0.1 K/uL (0.0-8.0); BASOPHILS % (AUTO) 0.8 % (0.0-2.0); EOSINOPHILS % (AUTO) 0.1 % (0.0-7.0); HEMATOCRIT 24.9 % (31.2-41.9); HEMOGLOBIN 8.8 g/dL (10.9-14.3); LYMPHOCYTES # (AUTO) 2.1 K/uL (20.0-40.0); LYMPHOCYTES % (AUTO) 26.8 % (20.5-51.5); MEAN CORPUSCULAR HEMOGLOBIN 39.3 uug (24.7-32.8); MEAN CORPUSCULAR HGB CONC 35 g/dL (32.3-35.6); MEAN CORPUSCULAR VOLUME 111.6 fL (75.5-95.3); MONOCYTES # (AUTO) 0.1 K/uL (2.0-10.0); MONOCYTES % (AUTO) 0.7 % (0.0-11.0); NEUTROPHILS # (AUTO) 5.5 K/uL (1.8-8.9); NEUTROPHILS % (AUTO) 71.6 % (38.5-71.5); PLATELET COUNT (AUTO) 385 K/uL (179-408); WHITE BLOOD COUNT (AUTO) 7.7 K/uL (3.8-11.8)
[2019-11-26 07:19] LABS: RED BLOOD CELL COUNT(AUTO) 2.23 MIL/uL (3.63-4.92)
[2019-11-26 08:00] VITALS: BP 138/60
--- NOTE | 2019-11-26 08:00 | NUR ---
Received patient in bed, awake and verbally responsive. No signs of distress noted. On Oxygen at 2L via nasal canula, saturating 94%. No SOB. No complain of Pain or discomfort. Remains on contact and droplet Isolation for positive covid 19. Proper PPE strictly Observed. All needs attended and met. kept clean and comfortable. Will continue to monitor.
[2019-11-26 08:10] LABS: CREATININE 0.8 mg/dL (0.6-1.3); MAGNESIUM 1.8 mg/dL (1.8-2.4); PHOSPHOROUS 2.8 mg/dL (2.5-4.9); POTASSIUM 3.7 mmol/L (3.5-5.1)
[2019-11-26] MEDS: DOCUSATE SODIUM 250 MG CAPSULE PO SCH (08:28)
[2019-11-26] MEDS: AMLODIPINE 2.5 MG TABLET PO SCH (08:29)
[2019-11-26] MEDS: LEVOTHYROXINE SODIUM 25 MCG TABLET PO SCH (08:29)
[2019-11-26] MEDS: CHOLECALCIFEROL 1,000 UNIT TABLET PO SCH (08:29)
[2019-11-26] MEDS: DIVALPROEX 125 MG TABLET.DR PO SCH (08:29)
[2019-11-26] MEDS: FENOFIBRATE NANOCRYSTALLIZED 145 MG TABLET PO SCH (08:29)
[2019-11-26] MEDS: PANTOPRAZOLE SODIUM 40 MG TABLET.DR PO SCH (08:29)
[2019-11-26] MEDS: risperiDONE 1 MG TABLET PO SCH (08:29)
[2019-11-26 12:00] VITALS: BP 143/64
--- NOTE | 2019-11-26 12:00 | NUR ---
Tried weaning off the Oxygen, patient saturating 83-86% on Room Air, placed back on Oxygen at 2L via nasal canula, saturating 92-94%.
[2019-11-26 15:55] VITALS: BP 141/60
--- NOTE | 2019-11-26 16:52 | NUR ---
Patient will Order to be discharge today at [facility], Patient is awake, alert and verbally responsive. On Oxygen at 2 L via Nasal canula, saturating 93%. Oxygen will be delivered at [facility] around 5-6PM, Patent will be roller picker at &PM today. All needs attended and met. kept clean and comfortable. Will continue to monitor.
--- NOTE | 2019-11-26 18:52 | NUR ---
Patient with Order to be discharge to [facility] with pickle processor at 1900. Discharge instructions given and verbalized Understanding, all belongings is signed and will be send with Patient. Endorsed to Oncoming Nurse to removed the Midline and wrist band. Will endorsed Accordingly.
--- NOTE | 2019-11-26 20:30 | NUR ---
Patient left with [facility] at 2030h
== END 2019-11-26 21:02 | disposition home health service (06) | DRG 871 ==
LOC: ER 16:22 → TELE 19:31 → MED 11-23 13:11 → MEDSURG3 11-24 18:03
PROVIDERS: ADMIT Internal Medicine; ATTEND Internal Medicine Nephrology
PROC: 05H533Z Insertion of Infusion Device into Right Subclavian Vein, Percutaneous Approach (ICD-10-PCS; principal; 2019-11-20)
DX: A41.89 Other specified sepsis (principal); U07.1 COVID-19; G93.41 Metabolic encephalopathy; J12.89 Other viral pneumonia; J96.01 Acute respiratory failure with hypoxia; N39.0 Urinary tract infection, site not specified; E87.1 Hypo-osmolality and hyponatremia; E03.9 Hypothyroidism, unspecified; B96.20 Unspecified Escherichia coli [E. coli] as the cause of diseases classified elsewhere; E83.39 Other disorders of phosphorus metabolism; E83.42 Hypomagnesemia; I10 Essential (primary) hypertension; J45.909 Unspecified asthma, uncomplicated; Z88.0 Allergy status to penicillin; D64.9 Anemia, unspecified; R53.1 Weakness; F31.9 Bipolar disorder, unspecified
CPT/HCPCS: 36415; 36600; 70030-TC; 71045; 80164; 82785; 83605; 83615; 83690; 83735; 84100; 84443; 84450; 84460; 85025; 85610; 85730; 86140; 87040; 87070; 87077; 87086; 87400; 93005; A4663; A9150; C1758; G0378; J0692; J1650; J2543; J3370; J3475; J3490; J7030; J7040; J7050; J7060; U0003-CS